=== PATIENT | male | born 2000 | race Caucasian/White ===

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

== ENCOUNTER 2019-12-24 15:28 | Outpatient (CLI) | payer OTHER ==
--- NOTE | 2019-12-24 16:25 | XRAY Report ---
PROCEDURE: Lumbar Spine 2 View INDICATIONS: BACKACHE TECHNIQUE: 3 views of the lumbar spine were acquired. COMPARISON: None. FINDINGS: Bones: There is rudimentary rib on the right side at L1. 5 hey-knl-vivickk vertebrae are present. Th ere is mild levocurvature. Normal bony alignment. Mild anterior spurring at L4-L5 and L5-S1. No vert ebral body compression fractures. No suspicious bony lesions. Soft tissues: Overlying bowel gas pattern is normal. No suspicious soft tissue calcifications. IMPRESSION: 1. Rudimentary right rib at L1. Transitional anatomy may be present. 2. Mild degenerative spurring at L4-L5 and L5-S1. No acute bony abnormalities. If clinical symptoms p ersist, MRI may be helpful for further evaluation. Reviewed by: Grabiel Gonzalez MD on 12/24/2019 4:24 PM PDT Approved by: Grabiel Gonzalez MD on 12/24/2019 4:24 PM PDT Station ID: [id number]
== END 2019-12-24 15:29 | disposition home or self-care (01) ==
LOC: DI 15:28
PROVIDERS: ATTEND Internal Medicine
DX: M46.06 Spinal enthesopathy, lumbar region (principal); M46.07 Spinal enthesopathy, lumbosacral region
CPT/HCPCS: 72100

== ENCOUNTER 2021-05-01 23:53 | Emergency (ER) | payer OTHER ==
--- NOTE | 2021-05-02 00:30 | ED Physician Documentation ---
PD HPI LOWER EXT INJURY - Stated complaint Stated Complaint: L ANKLE INJ - Chief complaint Chief Complaint: Trauma Ext - History obtained from History obtained from: Patient - History of Present Illness PD HPI LOW EXT INJURY LOCATION: Left, Ankle Type of injury: Fall Timing - onset: Enter time (19:00), Today, How many months ago Timing - details: Abrupt onset Improved by: Rest Worsened by: Moving, Palpating Associated symptoms: Swelling. No: Weakness, Numbness Recently seen: Not recently seen - Additional information Additional information: sudden onset left ankle pain when he fell while roller skating at approximately 7 PM tonight. Denies other injury, denies head injury. Pain is worse with weight-bearing and he has been utilizing a pair of old crutches he has from a previous injury Review of Systems Musculoskeletal: reports: Joint pain, Joint swelling, Pain with weight bearing PD PAST MEDICAL HISTORY - Past Medical History Past Medical History: No - Past Surgical History Past Surgical History: Yes - Present Medications Home Medications: Ambulatory Orders Medication Instructions Recorded Confirmed HYDROcod/ACETAM 5/325 [Dwight 5/325] 1 - 2 tablet PO Q6H PRN #14 tablet 05/02/21 - Allergies Allergies/Adverse Reactions: Allergies Allergy/AdvReac Type Severity Reaction Status Date / Time No Known Drug Allergies Allergy Verified 05/02/21 00:01 - Social History Does the pt smoke?: No Smoking Status: Never smoker Does the pt drink ETOH?: No Does the pt have substance abuse?: No - Immunizations Immunizations are current?: Yes PD ED PE NORMAL - Vitals Vital signs reviewed: Yes - General General: Alert and oriented X 3, No acute distress, Well developed/nourished - Derm Derm: Normal color - Extremities Extremities: No deformity - Neuro Neuro: No motor deficit, No sensory deficit PD ED PE EXPANDED - Extremities Extremities: Other (mild swelling left ankle with tenerness to palpation of lateral>medial aspects, no obvious deformity) Results - Vitals Vitals: Vital Signs - 24 hr 05/01/21 05/02/21 23:58 01:31 Temperature 36.4 C L 36.5 C Heart Rate 67 66 Respiratory 18 16 Rate Blood Pressure 170/78 H 138/78 H O2 Saturation 98 100 Oxygen O2 Source Room air - Rads (name of study) left ankle xrays Radiology: Prelim report reviewed, See rad report Procedures - Splint (location) Lower extremity left Splint applied by: Tech Type of splint: Fiberglass, Short leg, Posterior Other: Patient tolerated well, No complications, Neurovascular intact, Crutches provided PD MEDICAL DECISION MAKING - ED course Complexity details: reviewed results, re-evaluated patient, considered differential, d/w patient ED course: left ankle injury this evening, NVI on exam, xrays show nondisplaced posterior malleolus/posterior distal tibial fracture. splint placed and new crutches provided (the pair patient brings to ED appear old and worn). results discussed and instructed to seek orthopedic follow up. I am prescribing a short course of short-acting opioid pain medication for this patient. I have reviewed the patients [employer] and no concerning findings were noted. I have discussed that the opioids are for short term therapy only, and will not be refilled from the ED. Departure - Departure Disposition: 01 Home, Self Care Clinical Impression: Fracture, posterior malleolus Qualifiers: Encounter type: initial encounter Fracture type: closed Laterality: left Qualified Code(s): S82.392A - Other fracture of lower end of left tibia, initial encounter for closed fracture Condition: Good Instructions: ED Fx Ankle General, ED Crutch Walking, ED Splint Care Fiberglass Follow-Up: Marcin Vincent MD [Provider Admit Priv/Credential] - Within 3 Days Prescriptions: HYDROcod/ACETAM 5/325 [Dwight 5/325] 1 - 2 tablet PO Q6H PRN #14 tablet PRN Reason: Pain Comments: A prescription for hydrocodone with acetaminophen (pain medication) has been electronically submitted to [facility] pharmacy in [place] I am prescribing a short course of narcotic pain medication for you. These are potentially dangerous and addictive medications that should be used carefully. These medications may constipate you. Take an djtf-sso-wtgrnpt stool softener (docusate) twice daily with plenty of water while taking these medications. If you go 24 hours without a bowel movement, take dgjo-yfx-kbladlp miralax, per package instructions. Do not drink or drive while taking these medications. If you received narcotic or sedating medications while in the emergency depar tment, do not drive for 24 hours. Store this medication in a safe, secure place and out of reach of children. It is a violation of federal law to give or sell this medication to another person or to use in a manner other than prescribed. The ED will not refill narcotic prescriptions, including prescriptions lost or stolen. To dispose of unwanted medications: 1. [facility] at [address] in [place] has a medication drop box. They accept prescription medications (in pill form) Sunday through Sunday 9:00 a.m. to 5:00 p.m. 2. The [facility] accepts prescription medications (in pill form only) for disposal year round. Call for more information. 3. Contact the [facility] for the next [facility] sponsored prescription drug collection event. , [phone], or [phone]; Forms: Activity restrictions Discharge Date/Time: 05/02/21 01:31
--- NOTE | 2021-05-02 00:40 | XRAY Report ---
PROCEDURE: Ankle 3 View LT INDICATIONS: Trauma TECHNIQUE: 4 views of the ankle were acquired. COMPARISON: 12/13/2014 FINDINGS: Bones: There is a nondisplaced posterior malleolar fracture involving the posterior distal tibia. Rem ainder the visualized osseous structures appear intact. Ankle mortise is normally aligned. No suspi cious bony lesions. Soft tissues: No tibiotalar joint effusion. Achilles tendon appears normal. IMPRESSION: Nondisplaced posterior distal tibial/posterior malleolus fracture. Reviewed by: Jose A Murray MD on 05/02/2021 12:39 AM PST Approved by: Jose A Murray MD on 05/02/2021 12:39 AM PST Station ID: [id number]
[2021-05-02] MEDS ORDERED: HYDROcod/ACET 5/325 Prepack 4 PO STA (00:56)
[2021-05-02 01:32] VITALS: BP 138/78
== END 2021-05-02 01:31 | disposition home or self-care (01) ==
LOC: ED 23:53
DX: S82.892A Other fracture of left lower leg, initial encounter for closed fracture (principal); W19.XXXA Unspecified fall, initial encounter; Y93.51 Activity, roller skating (inline) and skateboarding
CPT/HCPCS: 29515; 99283

== ENCOUNTER 2021-05-05 00:01 | Outpatient (CLI) | payer OTHER ==
--- NOTE | 2021-05-16 06:08 | XRAY Report ---
PROCEDURE: Ankle 3 View LT INDICATIONS: OTHER FX OF LOWER END OF LEFT TIBIA TECHNIQUE: 3 views of the ankle were acquired. COMPARISON: 05/01/2021 FINDINGS: Nondisplaced posterior malleolus fracture in unchanged alignment. Tibiotalar joint space grossly pres erved. Scattered subchondral sclerosis and spurring. Talonavicular joint degeneration with chronic u nunited ossicle at the dorsal aspect. Soft tissues unremarkable IMPRESSION: Unchanged alignment of posterior malleolus fracture. Reviewed by: Real Beard MD on 05/05/2021 12:17 PM PST Approved by: Real Beard MD on 05/05/2021 12:17 PM PST Station ID: [id number]
== END 2021-05-05 23:59 | disposition home or self-care (01) ==
LOC: DI.N 00:01
PROVIDERS: ATTEND Orthopaedic Surgery
DX: S82.392D Other fracture of lower end of left tibia, subsequent encounter for closed fracture with routine healing (principal)

== ENCOUNTER 2021-05-19 07:30 | Outpatient (CLI) | payer OTHER ==
--- NOTE | 2021-05-19 11:34 | XRAY Report ---
PROCEDURE: Ankle 3 View LT INDICATIONS: FX OF DISTAL L TIBIA TECHNIQUE: 3 views of the ankle were acquired. COMPARISON: 05/05/2021 FINDINGS: Unchanged alignment of posterior malleolus fracture. Scattered subchondral sclerosis and spurring. IMPRESSION: Unchanged alignment of posterior malleolus fracture since 05/05/2021. Reviewed by: Real Beard MD on 05/19/2021 11:33 AM PST Approved by: Real Beard MD on 05/19/2021 11:33 AM PST Station ID: [id number]
== END 2021-05-19 23:59 | disposition home or self-care (01) ==
LOC: DI.N 07:30
PROVIDERS: ATTEND Physician Assistant
DX: S82.392D Other fracture of lower end of left tibia, subsequent encounter for closed fracture with routine healing (principal)

== ENCOUNTER 2021-06-09 08:00 | Outpatient (CLI) | payer OTHER ==
--- NOTE | 2021-06-09 09:28 | XRAY Report ---
PROCEDURE: Ankle 3 View LT INDICATIONS: NONDISPLACED BIMALLEOLAR FX OF L LOWER LEG TECHNIQUE: 3 views of the ankle were acquired. COMPARISON: 05/19/2021, 05/05/2021 FINDINGS: Bones: Patient's known vertical fracture through posterior malleolus is again seen with persistent mi nimal diastases at fracture site unchanged in appearance compared to prior study. No new fracture or dislocation is seen. Ankle mortise is normally aligned. No suspicious bony lesions. Soft tissues: No tibiotalar joint effusion. Achilles tendon appears normal. IMPRESSION: Stable appearing posterior malleolus fracture with anatomic ankle alignment. Reviewed by: Inocente Cervantes MD on 06/09/2021 9:27 AM [facility] Approved by: Inocente Cervantes MD on 06/09/2021 9:27 AM PST Station ID: [id number]
== END 2021-06-09 23:59 | disposition home or self-care (01) ==
LOC: DI.N 08:00
PROVIDERS: ATTEND Physician Assistant
DX: S82.845A Nondisplaced bimalleolar fracture of left lower leg, initial encounter for closed fracture (principal)